=== PATIENT | male | born 1995 | race African-American/Black ===

== ENCOUNTER 2020-07-18 08:31 | Emergency (ER) | payer OTHER ==
[2020-07-18] MEDS ORDERED: Ketorolac Tromethamine 30 MG/ML VIAL ONE (08:51)
[2020-07-18 09:03] LABS: #Basophils 0.1 thou/uL (0.0-0.2); #Eosinphils 0.2 thou/uL (0.0-0.7); #Lymphocytes 2.2 thou/uL (1.20-3.40); #Monocytes 0.6 thou/uL (0.11-0.59); #Neutrophils 1.4 thou/uL (1.40-6.50); %Basophils 1.5 % (0.0-1.0); %Eosinophils 4.2 % (0.0-10.0); %Lymphocytes 49.3 % (21.0-51.0); %Monocytes 13.7 % (0.0-10.0); %Neutrophils 31.3 % (42.0-75.0); Hemoglobin 13.8 g/dL (14.0-18.0); Mean Corpuscular HGB CONC 30.8 g/dL (32.0-36.0); Mean Corpuscular Hemoglobin 25.6 pg (27.0-31.0); Mean Corpuscular Volume 83.1 fL (78.0-98.0); Mean Platelet Volume 8.3 fL (7.4-10.4); Platelet Count 234 thou/uL (130-400); RBC Distribution Width 13.9 % (11.5-14.5); Red Blood Cell (RBC) Count 5.37 mill/uL (4.70-6.10); White Blood Cell (WBC) Count 4.4 thou/uL (4.8-10.8)
--- NOTE | 2020-07-18 09:29 | RAD ---
Chest one view HISTORY: Chest pain. FINDINGS: Cardiac silhouette and pulmonary vasculature are unremarkable. Mediastinum is midline. No l obar consolidation or evidence of pneumothorax. IMPRESSION : No abnormalities are demonstrated.
[2020-07-18 10:05] LABS: Albumin 3.9 g/dL (3.5-5.0)
[2020-07-18 10:07] LABS: Calcium 8.7 mg/dL (7.8-10.44); Chloride 104 mmol/L (98-107); Potassium 4.2 mmol/L (3.5-5.1); Sodium 140 mmol/L (136-145)
[2020-07-18 10:08] LABS: Globulin 3.1 g/dL (2.4-3.5); Glucose 95 mg/dL (70-105)
[2020-07-18 10:09] LABS: Anion Gap 14 mmol/L (10-20); Carbon Dioxide 26 mmol/L (22-29)
[2020-07-18 10:10] LABS: Bilirubin, Total 0.3 mg/dL (0.2-1.2)
[2020-07-18 10:11] LABS: Alkaline Phosphatase 47 U/L (40-110); Calc. Creatinine Clearance 0 mL/min (70-130)
[2020-07-18 10:12] LABS: BUN (Urea Nitrogen) 10 mg/dL (8.9-20.6)
[2020-07-18 10:13] LABS: AST (SGOT) 29 U/L (5-34)
[2020-07-18 10:14] LABS: ALT (SGPT) 50 U/L (8-55); CK (CPK) 311 U/L (30-200); Lipase 9 U/L (8-78)
== END 2020-07-18 11:02 ==
LOC: EEVIPCON 08:31 → ERS 08:31
DX: R07.9 Chest pain, unspecified (principal); J45.909 Unspecified asthma, uncomplicated; F17.210 Nicotine dependence, cigarettes, uncomplicated; Z79.51 Long term (current) use of inhaled steroids
CPT/HCPCS: 36415; 71045; 80053; 82550; 83690; 84484; 85025; 93005; 94760; 96374; J1885